=== PATIENT | female | born 1955 | race Caucasian/White ===

== ENCOUNTER → 2020-08-30 | Outpatient (CLI) | payer BC ==
[2020-08-30 14:19] LABS: HCT 40.1 % (34.0-46.0); HGB 13.1 gm/dL (11.4-16.0); MCH 29.6 pg (25.0-35.0); MCHC 32.8 g/dL (31.0-37.0); MCV 90.1 fL (80.0-100.0); Mean Platelet Volume 6.5; Platelet Count 336 k/uL (150-450); RBC 4.45 m/uL (3.80-5.40); RDW 12.4 % (11.5-15.5); WBC 5.5 k/uL (3.8-10.6)
[2020-08-30 14:22] LABS: Appearance,Urine Clear (Clear); Bilirubin,Urine Negative (Negative); Blood,Urine Small (Negative); Color,Urine Light Yellow; Glucose,Urine (UA) Negative (Negative); Ketones,Urine Negative (Negative); Leukocyte Esterase,Urine Trace (Negative); Nitrite,Urine Negative (Negative); Protein,Urine Negative (Negative); RBC,Urine 2 /hpf (0-5); Specific Gravity,Urine 1.009 (1.001-1.035); Urobilinogen,Urine <2.0 mg/dL (<2.0); WBC,Urine 1 /hpf (0-5)
[2020-08-30 14:29] LABS: ALT 14 U/L (4-34); AST 23 U/L (14-36); African American GFR (CKD) >90 (>60 ml/min/1.73 sqM); Albumin 4.9 g/dL (3.5-5.0); Alkaline Phosphatase 58 U/L (38-126); Anion Gap 8 mmol/L; Blood Urea Nitrogen 14 mg/dL (7-17); Calcium 10.3 mg/dL (8.4-10.2); Carbon Dioxide 28 mmol/L (22-30); Chloride 105 mmol/L (98-107); Glucose 103 mg/dL (74-99); Non-African American GFR(CKD) >90 (>60 ml/min/1.73 sqM); Sodium 141 mmol/L (137-145); Total Bilirubin 0.6 mg/dL (0.2-1.3); Total Protein 7.5 g/dL (6.3-8.2)
[2020-08-30 14:34] LABS: Prothrombin Time 10.6 sec (9.0-12.0)
[2020-08-30 14:40] LABS: Partial Thromboplastin Time 21.1 sec (22.0-30.0)
== END | disposition home or self-care (01) ==
LOC: LABPAT 13:22
PROVIDERS: ATTEND Orthopaedic Surgery
DX: Z01.812 Encounter for preprocedural laboratory examination (principal)
CPT/HCPCS: 36415; 80053; 81001; 85027; 85610; 85730; 87070

== ENCOUNTER 2020-09-10 12:51 | Day surgery (SDC) | payer BC, MEDICARE ==
[2020-08-27 15:11] VITALS: BMI 19.9
[~2020-09-10 12:51] MED LIST: ACETAMINOPHEN TAB 500 MG TAB PO PRN; DEXAMETHASONE SOD PHOSPHATE 4 MG/ML 1 ML VIAL IV ONE; GABAPENTIN 300 MG CAP PO PRN; MELOXICAM 7.5 MG TAB PO PRN; ONDANSETRON 4 MG/2 ML VIAL IVP ONE; TRANEXAMIC ACID 1,000 MG in SODIUM CHLORIDE 0.9% 100 ML IVPB PRN
[2020-09-10] MEDS ORDERED: ONDANSETRON 4 MG/2 ML VIAL ONE ×2 (13:13→13:54)
[2020-09-10] MEDS ORDERED: MAGNESIUM HYDROXIDE 2,400 MG/10 ML CUP PO PRN (13:21)
[2020-09-10] MEDS ORDERED: hydrOXYzine pamoate 25 MG CAP PO PRN (13:21)
[2020-09-10] MEDS ORDERED: HYDROmorphone 1 MG/ML 1 ML SYRINGE IVP PRN (13:21)
[2020-09-10] MEDS ORDERED: NALOXONE 0.4 MG/ML 1 ML VIAL IV PRN (13:21)
[2020-09-10] MEDS ORDERED: HYDROmorphone 0.2 MG/1 ML SYRINGE IVP PRN (13:21)
[2020-09-10] MEDS ORDERED: HYDROmorphone 0.5 MG/0.5 ML SYRINGE IVP PRN (13:21)
[2020-09-10] MEDS ORDERED: HYDROcodone/APAP 7.5-325MG 1 EACH TAB PO PRN (13:23)
[2020-09-10] MEDS: LACTATED RINGERS 1,000 ML IV SCH ×3 (13:46→18:10)
[2020-09-10] MEDS ORDERED: HYDROmorphone (PF) 1 MG/ML ONE (13:54)
[2020-09-10] MEDS ORDERED: ROCURONIUM 10 MG/ML (5 ML VIAL) IV ONE (13:54)
[2020-09-10] MEDS ORDERED: SODIUM CHLORIDE 0.9% 100 ML BAG ONE (13:54)
[2020-09-10] MEDS ORDERED: TRANEXAMIC ACID 1,000 MG/10 ML VIAL ONE (13:54)
[2020-09-10] MEDS ORDERED: MIDAZOLAM 2 MG/2 ML VIAL ONE (13:54)
[2020-09-10] MEDS ORDERED: SODIUM CHLORIDE 0.9% IRRIG 1,000 ML BTL IRRIGATION ONE (13:54)
[2020-09-10] MEDS ORDERED: HEPARIN SODIUM,PORCINE 10,000 UNIT/ML 1 ML VIAL ONE (13:54)
[2020-09-10] MEDS ORDERED: fentaNYL (PF) 50 MCG/ML 2 ML AMP ONE (13:54)
[2020-09-10] MEDS ORDERED: DEXAMETHASONE SOD PHOSPHATE 10 MG/ML 1 ML VIAL ONE (13:54)
[2020-09-10] MEDS ORDERED: GLYCOPYRROLATE 0.2 MG/ML 2 ML VIAL ONE (13:54)
[2020-09-10] MEDS ORDERED: PROPOFOL 10 MG/ML 20 ML VIAL IV ONE (13:54)
[2020-09-10] MEDS ORDERED: LIDOCAINE 1% INJ 10MG/ML (20 ML MDV) ONE (13:54)
[2020-09-10] MEDS ORDERED: NEOSTIGMINE 1 MG/ML 10 ML VIAL ONE (13:54)
[2020-09-10] MEDS ORDERED: ceFAZolin 1,000 MG in SODIUM CHLORIDE 0.9% 1,000 ML IRRIGATION ONE (14:23)
[2020-09-10] MEDS: ROPIVACAINE/EPI/CLONIDINE/KET 50 ML SYRINGE MISCELLANE PRN ×2 (14:23→14:58)
--- NOTE | 2020-09-10 15:07 | P.OP ---
Date of Procedure: 09/10/20 Preoperative Diagnosis: Severe osteoarthritis right hip Postoperative Diagnosis: Severe osteoarthritis right hip Procedure(s) Performed: Right total hip arthroplasty with a direct anterior approach Implants: [employer]hew Polarstem standard size 6 [employer]hew R3, 3 hole hemispherical acetabular shell, 48 mm [employer]hew Reflection 6.5 mm cancellus screw, 20 mm 2 [employer] R3, XLPE 20 acetabular liner [employer] Nephew Oxinium femoral head 32 m, +0 All components were press-fit. The articulation is Oxinium on polyethylene. Anesthesia: spinal Surgeon: Quincy Tracy Rotary Cutter Operator #1: Caroline Chase Estimated Blood Loss (ml): 200 (63 mL returned with Cell Saver) Pathology: other (Femoral head) Condition: stable Disposition: PACU Indications for Procedure: After failure of conservative treatment we discussed the surgical and nonsurgical treatment options at length. Patient wishes to proceed with a total hip arthroplasty with a direct anterior approach. Complications specific to this procedure were discussed at length, including but not limited to infection, leg length discrepancy, dislocation, nerve injury, and fracture. Covid-19 was also discussed at length with the patient, and they are aware of the current policies and procedures. The patient was given the option of delaying surgery, but they elect to proceed knowing these risks. Patient is aware of all these complications and informed consent was obtained Operative Findings: The operative findings are consistent with severe osteoarthritis of the right hip Description of Procedure: Patient was seen and evaluated in the preoperative area and the consent was reviewed. The operative site was marked with a skin marker. The patient was then brought to the operating room and given preoperative antibiotics intravenously. 1 g of Tranexamic acid was also given intravenously. A spinal anesthetic was administered by the anesthesia department. The patient was then placed on the [place] table with the bony prominences well-padded. The hip area was then prepped with a ChloraPrep solution and draped in the usual sterile fashion. A universal timeout was then performed, which confirmed the patient's name, surgical site, ALLERGIES, and procedure being performed on the consent. Next the incision site was located at 1 cm distal to the anterior superior iliac spine along the flexion crease of the hip. The skin and subcutaneous tissues were sharply incised. Incision was carefully dissected down to the fascia overlying the tensor fascia abiodun muscle. This fascia was then incised in line with the incision. Care was taken to stay laterally in order to avoid injuring the lateral femoral cutaneous nerve. Next, using blunt finger dissection, the tensor fascia abiodun muscle was dissected off its investing fascia. The muscle was then carefully retracted laterally with a cobra retractor over the lateral neck of the femur. Next, the circumflex vessels were identified and cauterized using the AquaMantis device. The anterior hip capsule was then exposed. The capsule was then opened and an inverted T fashion. Cobra retractors were then placed intracapsularly. The retractors were maintained intracapsular throughout the procedure. The proximal femur was then visualized. A small amount of traction was placed on the leg. The femoral neck was then osteotomized appropriate level above the lesser trochanter. A small wedge of bone was then removed from the remaining femoral head. Next, using a corkscrew the femoral head was removed from the acetabulum. On gross visual inspection, the femoral head had complete loss of articular cartilage and multiple periarticular osteophytes. The femoral head was then measured. Attention was then turned to the acetabulum. The acetabulum was exposed and any remaining labrum was excised. Sequential reaming of the acetabulum was performed using fluoroscopic guidance until there was a good bed of bleeding cancellus bone. When the appropriate size was reached, a trial was then placed. The position and fit of the trial was checked with fluoroscopy. The trial was then removed. Then, using fluoroscopic guidanc e, the final implant was impacted at 20 of anteversion and 40 of abduction, and fully seated in the acetabulum. 2 screws were then placed in the acetabulum. Again fluoroscopy was used to check position of the screws. Next, the liner was then impacted, with a 20 elevated liner located in the anterior superior quadrant. Component locking was confirmed. Attention was then directed to the femur. With the aid of the [place] table, the femur was externally rotated to approximately 130, extended, and adducted under the opposite leg. A side hook was then placed under the proximal femur, and the side hook elevator was used to elevate the proximal femur while releasing the capsule. Retractors were then placed. A capsular release was performed, as well as a release of the conjoined tendon, which afforded excellent visualization of the proximal femur. Next, a box osteotome was used to lateralize the proximal femur. A hand inserter operator was then used to locate the femoral canal. Sequential broaching was then performed with appropriate size which afforded excellent fixation in the proximal femur. A trial was then placed with appropriate head and neck, and the hip was gently reduced with the aid of the [place] table. Fluoroscopy was then used to check position of the components, as well as to ensure equal leg lengths. The hip was then gently dislocated and the trials were then removed. Final implants were then impacted and the hip was again reduced. Final fluoroscopic x-rays confirmed that the components were in anatomic position, as well as equal leg lengths. The hip was also taken through range of motion, and found to be stable. The hip was then copiously irrigated with antibiotic solution with pulsatile lavage. The hip was then irrigated with Irrisept solution. The soft tissues were then injected with a ropivacaine solution, which consisted of 246.25 mg of ropivacaine, 0.5 mg of epinephrine, 30 mg of Toradol, 80 g of clonidine, and 48.45 mL of sterile water, for a total of 100 mL of fluid injected. A second dose of 1 g of Tranexamic acid was also given intravenously. Any blood collected by Cell Saver was then returned to the patient at this time. The fascia was then closed with 2-0 strata fix suture. The subcutaneous tissue was closed with 3-0 Vicryl. The subcuticular tissue was closed with 3-0 strata fix suture. The skin was then closed with Exofin skin glue. After the glue and dried, and Optifoam silver impregnated dressing was applied. The patient was then transferred to the recovery room in stable condition. The dental front office assistant RAVIN Steve was required due to the complexity of surgery, and the need for skilled neurosurgical physician assistant for positioning, draping, exposure, retraction, and closure of the wound.
[2020-09-10] MEDS ORDERED: LACTATED RINGERS 1,000 ML IV ONE (15:12)
[2020-09-10] MEDS: HYDROmorphone 0.5 MG/0.5 ML SYRINGE IVP PRN ×2 (15:41→16:07)
--- NOTE | 2020-09-10 15:55 | FL ---
Fluoroscopy History: R hip replacement R hip replacement. [address] Lovell.
[2020-09-10] MEDS ORDERED: diphenhydrAMINE 50 MG/ML 1 ML VIAL ONE (16:08)
--- NOTE | 2020-09-10 16:08 | XR ---
EXAMINATION TYPE: XR Hip Limited RT DATE OF EXAM: 09/10/2020 COMPARISON: None HISTORY: Hip replacement TECHNIQUE: AP FINDINGS: Femoral prosthesis has been placed. Acetabular component is in place. No acute fractures ar e evident. Catheter may overlie the pelvis. IMPRESSION: 1. No acute fractures post right hip replacement.
[2020-09-10] MEDS ORDERED: diphenhydrAMINE 50 MG/ML 1 ML VIAL IVP ONE (16:11)
[2020-09-10] MEDS: SODIUM CHLORIDE 0.9% 1,000 ML IV SCH (18:09)
[2020-09-10] MEDS: ASPIRIN 325 MG TAB PO SCH (20:04)
[2020-09-10] MEDS ORDERED: SENNOSIDES-DOCUSATE SODIUM 1 EACH TAB PO SCH (21:00)
[2020-09-10] MEDS: HYDROcodone/APAP 7.5-325MG 1 EACH TAB PO PRN (22:29)
[2020-09-11] MEDS: SODIUM CHLORIDE 0.9% 1,000 ML IV SCH (06:51)
[2020-09-11] MEDS: ASPIRIN 325 MG TAB PO SCH (07:14)
--- NOTE | 2020-09-11 07:35 | P.DS ---
Providers Expected date of discharge: 09/11/20 Attending physician: Quincy Tracy Consults: 09/10/20 13:21 Consult Physician Routine Consulting Provider: Yany Burgos Consult Reason/Comments: medical management if pt does not dc home same day Do you want consulting provider notified?: Yes Primary care physician: Quincy Hicks - Discharge Diagnosis(es) (1) Primary localized osteoarthritis of right hip Current Visit: Yes Status: Acute (2) Status post total hip replacement, right Current Visit: Yes Status: Acute Hospital Course: This is a 65-year-old female with known history of degenerative arthritis of the right hip. The patient presents for evaluation. After discussion and consideration patient elects to proceed with total hip arthroplasty with direct anterior approach. The patient is seen preoperatively by her primary care physician and cleared for surgery. Patient is admitted to [facility] on 09/10/2020 for total hip arthroplasty with direct anterior approach. The procedures performed without complication or sequelae. The patient is doing well postoperatively. Labs and vital signs are stable on day of discharge. On day of discharge patient's hip incision is healing well. There is minimal erythema. There is no drainage noted at this time. There is minimal soft tissue swelling to the hip and thigh. Patient has full foot and ankle motion without difficulty or pain. Neurovascular status to the right lower extremity is intact. Patient is discharged to home in good condition. Please see med rec for accurate list of home medications. Patient Condition at Discharge: Good Plan - Discharge Summary Discharge Rx Participant: Yes New Discharge Prescriptions: New HYDROcodone/APAP 7.5-325MG [[place] 7.5-325] 1 - 2 tab PO Q6H PRN #32 tab PRN Reason: Pain Aspirin 325 mg PO BID #60 tab Sennosides [Senokot] 2 tab PO DAILY PRN #60 tablet PRN Reason: Constipation Ondansetron Odt [Zofran Odt] 1 tab PO Q8HR PRN #10 tab PRN Reason: Nausea No Action Loratadine [Claritin] 10 mg PO DAILY Acetaminophen/Diphenhydramine [Tylenol PM 500-25mg] 1 tab PO HS Rosuvastatin Calcium [Crestor] 5 mg PO DAILY traZODone HCL [Desyrel] 100 mg PO HS Relief Factor 1 dose PO TID Menthol [Biofreeze] 1 applic TOPICAL DAILY Emal Cream 1 applic TOPICAL DAILY Diclofenac Sodium [Voltaren Gel] 2 gram TOPICAL DAILY Acetaminophen-Codeine 300-30mg [Tylenol w/codeine #3] 1 - 2 tab PO Q4-6H PRN PRN Reason: Pain Naproxen Sod/Diphenhydramine [Aleve Pm Caplet] 1 each PO HS Celecoxib [CeleBREX] 200 mg PO BID Cbd W/Melatonin 1 tab PO DAILY Discharge Medication List Acetaminophen-Codeine 300-30mg [Tylenol w/codeine #3] 1 - 2 tab PO Q4-6H PRN 08/27/20 [History] Acetaminophen/Diphenhydramine [Tylenol PM 500-25mg] 1 tab PO HS 08/27/20 [History] Cbd W/Melatonin 1 tab PO DAILY 08/27/20 [History] Celecoxib [CeleBREX] 200 mg PO BID 08/27/20 [History] Diclofenac Sodium [Voltaren Gel] 2 gram TOPICAL DAILY 08/27/20 [History] Emal Cream 1 applic TOPICAL DAILY 08/27/20 [History] Loratadine [Claritin] 10 mg PO DAILY 08/27/20 [History] Menthol [Biofreeze] 1 applic TOPICAL DAILY 08/27/20 [History] Naproxen Sod/Diphenhydramine [Aleve Pm Caplet] 1 each PO HS 08/27/20 [History] Relief Factor 1 dose PO TID 08/27/20 [History] Rosuvastatin Calcium [Crestor] 5 mg PO DAILY 08/27/20 [History] traZODone HCL [Desyrel] 100 mg PO HS 08/27/20 [History] Aspirin 325 mg PO BID #60 tab 09/10/20 [Rx] HYDROcodone/APAP 7.5-325MG [[place] 7.5-325] 1 - 2 tab PO Q6H PRN #32 tab 09/10/20 [Rx] Ondansetron Odt [Zofran Odt] 1 tab PO Q8HR PRN #10 tab 09/10/20 [Rx] Sennosides [Senokot] 2 tab PO DAILY PRN #60 tablet 09/10/20 [Rx] Follow up Appointment(s)/Referral(s): Quincy Tracy DO [Doctor of Osteopathic Medicine] - 2 Weeks Activity/Diet/Wound Care/Special Instructions: Weightbearing as tolerated with walker. Leave dressing intact. Dressing may be removed by home care nurse or by patient in 7 days. Then change dressing twice daily until follow up. May shower with initial dressing intact and after removal. If dressing become saturated, please remove. Please take aspirin 325mg twice daily for 30 days to prevent blood clots. Recommend use of compression stockings daily until follow up to help prevent swelling and blood clots. May remove at night before sleeping. Please follow-up with [facility] in 2 weeks and call with any questions or concerns, . Discharge Disposition: HOME WITH HOME HEALTH SERVICES
[2020-09-11 08:03] VITALS: BP 99/52; PULSE 57; RESP 16; TEMP 98.1
[2020-09-11 10:40] LABS: Basophils # (A) 0.02 X 10*3/uL (0.00-0.10); Basophils % (A) 0.1 %; Eosinophils # (A) 0.01 X 10*3/uL (0.04-0.35); Eosinophils % (A) 0.1 %; HCT 29.3 % (37.2-46.3); HGB 9.5 g/dL (12.0-15.0); Lymphocytes # (A) 1.43 X 10*3/uL (0.90-5.00); Lymphocytes % (A) 10.7 %; MCH 29.9 pg (27.0-32.0); MCHC 32.4 g/dL (32.0-37.0); MCV 92.1 fL (80.0-97.0); Mean Platelet Volume 9.6 fL (9.5-12.2); Monocytes # (A) 1.22 X 10*3/uL (0.20-1.00); Monocytes % (A) 9.1 %; Neutrophils # (A) 10.67 X 10*3/uL (1.80-7.70); Neutrophils % (A) 79.6 %; Platelet Count 220 X 10*3/uL (140-440); RBC 3.18 X 10*6/uL (4.10-5.20); RDW 12.4 % (11.5-14.5)
[2020-09-11] MEDS: HYDROcodone/APAP 7.5-325MG 1 EACH TAB PO PRN (11:52)
--- NOTE | 2020-09-11 17:27 | P.CONS ---
History of Present Illness - History of Present Illness This is a pleasant 65 years old female with past medical history of hyperlipi demia, DVT or thromboses and pulmonary embolism and degenerative disc disease. History of brain meningioma status post surgical resection at [facility] with Dr. Arian Napier. Presents electively under service of orthopedic team for severe right hip osteoarthritis, she underwent right total hip arthroplasty. Today is postop day #1. Patient was sitting in chair comfortable not in distress. Fully awake and oriented, she denies any other symptoms like no chest pain or dyspnea. No headache or weakness. Abdominal pain. No diarrhea or urinary complaints. No fever Patient is asymptomatic, she was dressed in sports suits and states that she practice pork every day almost Her vitals showing borderline blood pressure of 99/52 bradycardia with heart rate of 52. Labs showing mild leukocytosis of 13.4 K. Similarly 9.5 and platelet count is 220 Review of Systems CONSTITUTIONAL: No fever, no malaise, no fatigue. HEENT: No recent visual problems or hearing problems. Denied any sore throat. CARDIOVASCULAR: No orthopnea, PND, no palpitations, no syncope. PULMONARY: No shortness of breath, no cough, no hemoptysis. GASTROINTESTINAL: No diarrhea, no nausea, no vomiting, no abdominal pain. Normoactive bowel sounds. NEUROLOGICAL: No headaches, no weakness, no numbness. HEMATOLOGICAL: Denies any bleeding or petechiae. GENITOURINARY: Denies any burning micturition, frequency, or urgency. -MUSCULOSKELETAL/RHEUMATOLOGICAL: As above ENDOCRINE: Denies any polyuria or polydipsia. Past Medical History Past Medical History: Deep Vein Thrombosis (DVT), Hyperlipidemia, Osteoarthritis (OA), Pulmonary Embolus (PE) Additional Past Medical History / Comment(s): AVASCULAR NECROSIS RT HIP. LT MENINGIOMA-HAD RADIATION LAST ROUND 05/08/20 History of Any Multi-Drug Resistant Organisms: None Reported Additional Past Surgical History / Comment(s): LT MENINGIOMA SX X 2. COLONOSCOPY Past Anesthesia/Blood Transfusion Reactions: Motion Sickness Past Psychological History: Anxiety Additional Psychological History / Comment(s): VERY ANXIOUS REGARDING UPCOMING SURGERY Smoking Status: Never smoker Past Alcohol Use History: None Reported Additional Past Alcohol Use History / Comment(s): QUIT SMOKING AGE 23. 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 INSTRUCTED TO REFRAIN FROM USE FOR AT LEAST 24 HOURS PRIOR TO PROCEDURE - Past Family History Sister(s) Family Medical History: Cancer Medications and Allergies Home Medications Medication Instructions Recorded Confirmed Type Acetaminophen-Codeine 300-30mg 1 - 2 tab PO Q4-6H PRN 08/27/20 09/10/20 History [Tylenol w/codeine #3] Acetaminophen/Diphenhydramine 1 tab PO HS 08/27/20 09/10/20 History [Tylenol PM 500-25mg] Cbd W/Melatonin 1 tab PO DAILY 08/27/20 09/10/20 History Emal Cream 1 applic TOPICAL DAILY 08/27/20 09/10/20 History Loratadine [Claritin] 10 mg PO DAILY 08/27/20 09/10/20 History Menthol [Biofreeze] 1 applic TOPICAL DAILY 08/27/20 09/10/20 History Relief Factor 1 dose PO TID 08/27/20 09/10/20 History Rosuvastatin Calcium [Crestor] 5 mg PO DAILY 08/27/20 09/10/20 History traZODone HCL [Desyrel] 100 mg PO HS 08/27/20 08/27/20 History Aspirin 325 mg PO BID #60 tab 09/10/20 Rx HYDROcodone/APAP 7.5-325MG [[place] 1 - 2 tab PO Q6H PRN #32 tab 09/10/20 Rx 7.5-325] Ondansetron Odt [Zofran Odt] 1 tab PO Q8HR PRN #10 tab 09/10/20 Rx Sennosides [Senokot] 2 tab PO DAILY PRN #60 tablet 09/10/20 Rx Allergies Allergy/AdvReac Type Severity Reaction Status Date / Time No Known Allergies Allergy Verified 09/10/20 13:21 Physical Exam Vitals: Vital Signs Temp Pulse Pulse Resp BP Pulse Ox 09/11/20 08:00 98.1 F 57 L 16 99/52 100 09/11/20 02:08 98.4 F 64 18 93/54 96 09/10/20 20:29 59 L 18 112/68 97 09/10/20 20:28 67 18 111/73 97 09/10/20 19:51 61 18 111/73 95 09/10/20 19:01 67 18 100/65 94 L 09/10/20 18:31 67 18 111/69 94 L 09/10/20 18:16 61 18 104/68 94 L 09/10/20 18:01 60 18 124/79 97 09/10/20 17:46 64 18 124/79 93 L 09/10/20 17:31 67 18 138/81 92 L 09/10/20 16:47 53 L 18 117/62 93 L 09/10/20 16:33 56 L 16 133/64 92 L 09/10/20 16:17 61 18 156/62 92 L 09/10/20 16:02 58 L 18 142/92 95 09/10/20 15:47 49 L 18 147/73 100 09/10/20 15:32 80 18 148/72 96 09/10/20 15:22 97.4 F L 82 14 147/65 96 09/10/20 13:30 97.4 F L 61 18 135/70 100 Intake and Output 09/10/20 09/11/20 09/11/20 22:59 06:59 14:59 Intake Total 800 Balance 800 Intake: IV 800 Other: # Voids 0 3 # Bowel Movements 0 Weight 53.2 kg GENERAL: The patient is alert and oriented x3, not in any acute distress. Well developed, well nourished. HEENT: Pupils are round and equally reacting to light. EOMI. No scleral icterus. No conjunctival pallor. Normocephalic, atraumatic. No pharyngeal erythema. No thyromegaly. CARDIOVASCULAR: S1 and S2 present. No murmurs, rubs, or gallops. PULMONARY: Chest is clear to auscultation, no wheezing or crackles. ABDOMEN: Soft, nontender, nondistended, normoactive bowel sounds. No palpable organomegaly. MUSCULOSKELETAL: No joint swelling or deformity. -EXTREMITIES: No cyanosis, clubbing, or pedal edema. Right hip surgical wound is healing with dressing is in place, rest of exam is deferred to surgery team NEUROLOGICAL: Gross neurological examination did not reveal any focal deficits. SKIN: No rashes. no petechiae. Results CBC & Chem 7: 09/11/20 05:07 Labs: Abnormal Lab Results - Last 24 Hours (Table) 09/11/20 Range/Units 05:07 WBC 13.40 H (4.50-10.00) X 10*3/uL RBC 3.18 L (4.10-5.20) X 10*6/uL Hgb 9.5 L (12.0-15.0) g/dL Hct 29.3 L (37.2-46.3) % Immature Gran # 0.05 H (0.00-0.04) X 10*3/uL Neutrophils # 10.67 H (1.80-7.70) X 10*3/uL Monocytes # 1.22 H (0.20-1.00) X 10*3/uL Eosinophils # 0.01 L (0.04-0.35) X 10*3/uL Assessment and Plan Assessment: Severe right hip osteoarthritis status post right hip replacement Bilateral shoulder osteoarthritis, she will needs follow-up as an outpatient Mild leukocytosis, most likely reactive, no signs of infection, no need for antibiotics. Monitor WBC Mild normochromic and normocytic anemia, most likely secondary to surgery, follow-up hemoglobin History of hyperlipidemia History of brain meningioma status post surgical resection History of DVT/PE Plan: This is a pleasant 65 years old female who is status post right hip a rthroplasty. Pain management and DVT prophylaxis with management of anticoagulation as per surgery primary team Monitor WBC and hemoglobin Labs and medication were reviewed.. Continue same treatment. Continue with symptomatic treatment. Resume home medication. Monitor lytes and vitals. DVT and GI prophylaxis. Further recommendationsas per clinical course of the patient We recommend patient to follow-up with PCP Dr. Hicks in one week after discharge, and she was instructed with the same Thank you for consulting us, we will follow up with you
== END 2020-09-11 12:11 | disposition home health service (06) ==
LOC: OR 12:51 → 4SSUR 16:20 → OR 09-11 12:11
PROVIDERS: ATTEND Orthopaedic Surgery
DX: M16.11 Unilateral primary osteoarthritis, right hip (principal); E78.5 Hyperlipidemia, unspecified; Z87.891 Personal history of nicotine dependence; Z79.899 Other long term (current) drug therapy; Z86.711 Personal history of pulmonary embolism; Z86.718 Personal history of other venous thrombosis and embolism; Z86.73 Personal history of transient ischemic attack (TIA), and cerebral infarction without residual deficits
CPT/HCPCS: 97116; 97162; 97535; 97165; 86891; 86900; 86901; 85025; 86850; 73501; 27130; C1776; J2250; J1200; J1644; J1100; J2710; J0690 ×3; J2405; J2001; J3010; J1170 ×2; J2704; 88305; 88311

== ENCOUNTER → 2020-12-31 | Outpatient (CLI) | payer BC ==
--- NOTE | 2021-01-02 13:50 | MM ---
Reason for exam: screening (asymptomatic). Last mammogram was performed 3 years and 1 month ago. History: Patient is postmenopausal. Physical Findings: A clinical breast exam by your physician is recommended on an annual basis and results should be correlated with mammographic findings. MG Screening Mammo w CAD Bilateral CC and MLO view(s) were taken. Prior study comparison: December 11, 2017, mammogram, performed at [place]. November 25, 2015, mammogram, performed at [place]. The breast tissue is heterogeneously dense. This may lower the sensitivity of mammography. Unchanged central right CC asymmetric density. No significant changes when compared with prior studies. ASSESSMENT: Benign, BI-RAD 2 RECOMMENDATION: Routine screening mammogram of both breasts in 1 year.
== END | disposition home or self-care (01) ==
LOC: RADMAMWWP 13:57
PROVIDERS: ATTEND Family Medicine
DX: Z12.31 Encounter for screening mammogram for malignant neoplasm of breast (principal); Z78.0 Asymptomatic menopausal state
CPT/HCPCS: 77067

== ENCOUNTER → 2023-07-14 | Outpatient (CLI) | payer MEDICARE, OTHER ==
[2023-07-14 12:47] LABS: Prothrombin Time 10.6 sec (10.0-12.5)
[2023-07-14 14:39] LABS: HCT 40.6 % (37.2-46.3); HGB 13.2 g/dL (12.0-15.0); MCH 29.1 pg (27.0-32.0); MCHC 32.5 g/dL (32.0-37.0); MCV 89.4 FL (80.0-97.0); Mean Platelet Volume 8.9 FL (9.5-12.2); NRBC Per 100 WBC 0 X 10*3/uL (0.00-0.01); Platelet Count 363 X 10*3/uL (140-440); RBC 4.54 X 10*6/uL (4.10-5.20); RDW 12.2 % (11.5-14.5); WBC 6.34 X 10*3/uL (4.50-10.00)
[2023-07-14 15:08] LABS: ALT 20 U/L (8-44); AST 22 U/L (13-35); Albumin 4.9 g/dL (3.8-4.9); Albumin/Globulin Ratio 2.04 Ratio (1.60-3.17); Alkaline Phosphatase 66 U/L (41-126); BUN/Creat Ratio 12.29 Ratio (12.00-20.00); Blood Urea Nitrogen 8.6 mg/dL (9.0-27.0); Calcium 9.9 mg/dL (8.7-10.3); Carbon Dioxide 24.9 mmol/L (21.6-31.8); Chloride 103 mmol/L (96-109); Globulin 2.4 g/dL (1.6-3.3); Glucose 92 mg/dL (70-110); Potassium 4.3 mmol/L (3.5-5.5); Sodium 139 mmol/L (135-145); Total Bilirubin 0.4 mg/dL (0.3-1.2); Total Protein 7.3 g/dL (6.2-8.2)
== END | disposition home or self-care (01) ==
LOC: LABPAT 10:59
PROVIDERS: ATTEND Orthopaedic Surgery
DX: Z01.812 Encounter for preprocedural laboratory examination (principal); Z22.322 Carrier or suspected carrier of Methicillin resistant Staphylococcus aureus
CPT/HCPCS: 36415; 80053; 85027; 85610; 85730; 86850; 86900; 86901; 87070

== ENCOUNTER 2023-07-20 07:08 | Day surgery (SDC) | payer MEDICARE, OTHER ==
[2023-07-15 11:26] VITALS: BMI 22.1
[~2023-07-20 07:08] MED LIST changes: -ACETAMINOPHEN TAB 500 MG TAB PO PRN; -DEXAMETHASONE SOD PHOSPHATE 4 MG/ML 1 ML VIAL IV ONE; -GABAPENTIN 300 MG CAP PO PRN; +HYDROmorphone 0.5 MG/0.5 ML SYRINGE IVP PRN; +LIDOCAINE 1% (10MG/ML) FOR IV START INTRADERMA PRN; -MELOXICAM 7.5 MG TAB PO PRN; -ONDANSETRON 4 MG/2 ML VIAL IVP ONE; +TRANEXAMIC 1,000 MG/100ML-NACL 1,000 MG in SALINE 1 100ML.BAG IVPB PRN; -TRANEXAMIC ACID 1,000 MG in SODIUM CHLORIDE 0.9% 100 ML IVPB PRN
[2023-07-20] MEDS: IV FLUID CONTINUATION 1,000 ML IV ONE ×2 (07:39→13:05)
[2023-07-20] MEDS: GABAPENTIN 300 MG CAP PO PRN (08:05)
[2023-07-20] MEDS: MELOXICAM 7.5 MG TAB PO PRN (08:05)
[2023-07-20] MEDS: ONDANSETRON 4 MG/2 ML VIAL IVP ONE (08:07)
[2023-07-20] MEDS: DEXAMETHASONE SOD PHOSPHATE 4 MG/ML 1 ML VIAL IV ONE (08:08)
[2023-07-20] MEDS: LACTATED RINGERS 1,000 ML IV SCH (08:08)
[2023-07-20] MEDS: MIDAZOLAM 2 MG/2 ML VIAL IVP ONE (08:15)
--- NOTE | 2023-07-20 08:22 | P.ANPRN ---
Procedure Note - Anesthesia - Nerve Block Performed Left Justyn Single Time Out Performed: Yes ([id number]) Date of Procedure: 07/20/23 Procedure Start Time: : Procedure Stop Time: : Location of Patient: PreOp Indication: Acute Post-Operative Pain, Requested by Surgeon Sedation Type: Sedate with meaningful contact maintained Preparation: Sterile Prep, Sterile Dressing Position: Supine Catheter: None Needle Types: Pajunk Needle Gauge: 21 Ultrasound used to visualize needle placement: Yes Ultrasound used to observe medication spread: Yes Injectate: 0.5% Ropivacaine (see comment for volume) (20 ml mixed with 4 mg of dexamethasone) Blood Aspirated: No Pain Paresthesia on Injection Noted: No Image Stored and Saved: Yes Events: Uneventful and Well Tolerated
[2023-07-20] MEDS ORDERED: NALOXONE 0.4 MG/ML 1 ML VIAL IV PRN (08:53)
[2023-07-20] MEDS ORDERED: ONDANSETRON 4 MG/2 ML VIAL IVP PRN (08:53)
[2023-07-20] MEDS ORDERED: MAGNESIUM HYDROXIDE 2,400 MG/30 ML CUP PO PRN (08:53)
[2023-07-20] MEDS ORDERED: HYDROmorphone 0.5 MG/0.5 ML SYRINGE IVP PRN ×3 (08:53)
[2023-07-20] MEDS ORDERED: HYDROcodone/APAP 7.5-325MG 1 EACH TAB PO PRN (08:55)
[2023-07-20] MEDS ORDERED: HYDROmorphone (PF) 1 MG/ML ONE (09:10)
[2023-07-20] MEDS ORDERED: TRANEXAMIC 1,000 MG/100ML-NACL PREMIX BAG ONE (09:10)
[2023-07-20] MEDS ORDERED: MIDAZOLAM 2 MG/2 ML VIAL ONE (09:10)
[2023-07-20] MEDS ORDERED: fentaNYL (PF) 50 MCG/ML 2 ML AMP ONE (09:10)
[2023-07-20] MEDS ORDERED: ROPIVACAINE 5 MG/ML 30 ML VIAL ONE (09:10)
[2023-07-20] MEDS ORDERED: PROPOFOL 10 MG/ML 20 ML VIAL IV ONE (09:10)
[2023-07-20] MEDS ORDERED: SUCCINYLCHOLINE CHLORIDE 200 MG/10 ML VIAL IV ONE (09:10)
[2023-07-20] MEDS ORDERED: NEOSTIGMINE 1 MG/ML 10 ML VIAL ONE (09:10)
[2023-07-20] MEDS ORDERED: LIDOCAINE 1% INJ 10MG/ML (20 ML MDV) ONE (09:10)
[2023-07-20] MEDS ORDERED: DEXAMETHASONE SOD PHOSPHATE 4 MG/ML 1 ML VIAL ONE (09:10)
[2023-07-20] MEDS ORDERED: GLYCOPYRROLATE 0.2 MG/ML 2 ML VIAL ONE (09:10)
[2023-07-20] MEDS: LACTATED RINGERS 1,000 ML IV ONE (09:37)
[2023-07-20] MEDS: ROPIVACAINE 5 MG/ML 30 ML VIAL MISCELLANE ONE ×2 (09:45→10:17)
[2023-07-20] MEDS: ceFAZolin 1,000 MG in SODIUM CHLORIDE 0.9% 1,000 ML IRRIGATION ONE (09:46)
--- NOTE | 2023-07-20 10:26 | P.OP ---
Date of Procedure: 07/20/23 Preoperative Diagnosis: severe osteoarthritis left hip Postoperative Diagnosis: severe osteoarthritis left hip Procedure(s) Performed: left total hip arthroplasty with a direct anterior approach Implants: [employer] Polarstem standard size 7 with a collar [employer] R3, 3 hole hemispherical acetabular shell, 48 mm [employer] Reflection 6.5 mm cancellus screw, 20 mm, 25 mm [employer] R3, XLPE 20 acetabular liner [employer]hew Oxinium femoral head 32 mm, +0 All components were press-fit. The articulation is Oxinium on polyethylene. Anesthesia: GETA Surgeon: Quincy Tracy In Service Coordinator #1: Caroline Chase Estimated Blood Loss (ml): 350 Pathology: none sent Condition: stable Disposition: PACU Indications for Procedure: After failure of conservative treatment we discussed the surgical and nonsu rgical treatment options at length. Patient wishes to proceed with a total hip arthroplasty with a direct anterior approach. Complications specific to this procedure were discussed at length, including but not limited to infection, leg length discrepancy, dislocation, nerve injury, and fracture. Covid-19 was also discussed at length with the patient, and they are aware of the current policies and procedures. The patient was given the option of delaying surgery, but they elect to proceed knowing these risks. Patient is aware of all these complications and informed consent was obtained Operative Findings: the operative findings are consistent with severe osteoarthritis of the left hip Description of Procedure: The patient was seen and evaluated in the preoperative area and the consent was reviewed. The operative site was marked with a skin marker. The patient verified the procedure and operative site. A AL block was placed by anesthesia in the preoperative area. The patient was then brought to the operating room and given preoperative antibiotics intravenously. 1 g of Tranexamic acid was also given intravenously. A general anesthetic was administered by the anesthesia department. The patient was then placed on the [place] table with the bony prominences well-padded. The hip area was then prepped with a ChloraPrep solution and draped in the usual sterile fashion. A universal timeout was then performed, which confirmed the patient's name, surgical site, ALLERGIES, and procedure being performed on the consent. Next the incision site was located at 1 cm distal and 4 cm lateral to the anterior superior iliac spine. The skin and subcutaneous tissues were sharply incised. Incision was carefully dissected down to the fascia overlying the tensor fascia abiodun muscle. This fascia was then incised in line with the muscle fibers. Care was taken to stay laterally in order to avoid injuring the lateral femoral cutaneous nerve. Next, using blunt finger dissection, the tensor fascia abiodun muscle was dissected off its investing fascia. The muscle was then carefully retracted laterally with a cobra retractor over the lateral neck of the femur. Next, the circumflex vessels were identified and cauterized using the Aquamantis device. The anterior hip capsule was then exposed. The capsule was then opened and an inverted T fashion. The retractors were then placed intracapsularly. The retractors were maintained intracapsular throughout the procedure. The proximal femur was then visualized. Fluoroscopic x-rays were then taken in order to evaluate the preoperative leg lengths. A small amount of traction was placed on the leg. The femoral neck was then osteotomized at the appropriate level above the lesser trochanter. A small wedge of bone was then removed from the remaining femoral head. Next, using a corkscrew the femoral head was removed from the acetabulum. On gross visual inspection, the femoral head had complete loss of articular cartilage and multiple periarticular osteophytes. The femoral head was then measured. Attention was then turned to the acetabulum. The acetabulum was exposed and any remaining labrum was excised. Sequential reaming of the acetabulum was performed using fluoroscopic guidance until there was a good bed of bleeding cancellus bone. When the appropriate size was reached, a trial was then placed. The position and fit of the trial was checked with fluoroscopy. The trial was then removed. Then, using fluoroscopic guidance, the final implant was impacted at 20 of anteversion and 40 of abduction, and fully seated in the acetabulum. 2 screws were then placed in the acetabulum. Again fluoroscopy was used to check position of the screws. Next, the liner was then impacted, with a 20 elevated liner located in the anterior superior quadrant. Component locking was confirmed. Attention was then directed to the femur. With the aid of the [place] table, the femur was externally rotated to approximately 130, extended, and adducted under the opposite leg. A side hook was then placed under the proximal femur, and the side hook elevator was used to elevate the proximal femur while releasing the capsule. Retractors were then placed. A capsular release was performed, as well as a release of the conjoined tendon, which afforded excellent v isualization of the proximal femur. Next, a box osteotome was used to lateralize the proximal femur. A kiln hand was then used to locate the femoral canal. Sequential broaching was then performed with appropriate size which afforded excellent fixation in the proximal femur. A trial was then placed with appropriate head and neck, and the hip was gently reduced with the aid of the [place] table. Fluoroscopy was then used to check position of the components, as well as to evaluate the leg lengths and offset. The leg lengths and offset were measured as closely as possible to ensure stability of the hip. The hip was then gently dislocated and the trials were then removed. Final implants were then impacted and the hip was again reduced. Final fluoroscopic x-rays confirmed that the components were in anatomic position. The leg lengths and offset were measured and were found to coincide with the trial measurements. The hip was also taken through range of motion, and found to be stable. The hip was then copiously irrigated with antibiotic solution with pulsatile lavage. The hip was then irrigated with Irrisept solution. The soft tissues were then injected with a ropivacaine solution. A second dose of 1 g of Tranexamic acid was also given intravenously. The fascia was then closed with 2-0 strata fix suture. The subcutaneous tissue was closed with 3-0 Vicryl. The subcuticular tissue was closed with 3-0 strata fix suture. The skin was then closed with Exofin skin glue. After the glue and dried, and Optifoam silver impregnated dressing was applied. The patient was t hen transferred to the recovery room in stable condition. The assistant secretary RAVIN Steve was required due to the complexity of surgery, and the need for skilled surgical manager for positioning, draping, exposure, retraction, and closure of the wound.
--- NOTE | 2023-07-20 11:03 | FL ---
EXAMINATION TYPE: FL guidance operating room, XR Hip Limited LT Intraoperative/procedural fluoroscopi c services were provided. Total fluoroscopy time is 48.5 seconds with a total of 3 submitted images t o PACS. Please see the operative/procedural note for further details. DAP: 2.0508 Gycm2
[2023-07-20] MEDS: MEPERIDINE 50 MG/ML SYRINGE IVP STA ×2 (11:25→12:05)
[2023-07-20 13:54] VITALS: RESP 16
--- NOTE | 2023-07-20 14:05 | XR ---
EXAMINATION TYPE: XR Hip Limited 1 view LT DATE OF EXAM: 07/20/2023 Comparison: None Clinical History: 68-year-old female Status post hip surgery, assess surgical alignment Findings: Image shows placement of left total hip arthroplasty. Acetabular cup and femoral stem components of t he prosthesis are well seated without periprosthetic fracture. Alignment grossly anatomic. Scattered soft tissue air related to recent operation. Impression: Uncomplicated postoperative appearance left total hip arthroplasty.
[2023-07-20] MEDS: ACETAMINOPHEN TAB 500 MG TAB PO PRN (15:09)
--- NOTE | 2023-07-20 15:55 | P.HPIM ---
History of Present Illness H&P Date: 07/20/23 Chief Complaint: Left hip pain This is a 68-year-old white female who reported to the hospital with left hip pain underwent left hip arthroplasty. She is currently postop, no chest pain no abdominal pain no nausea no vomiting no dizziness no shortness of breath. She denies hematuria or dysuria. Family at bedside. Review of Systems 10 systems reviewed, pertinent positive and negative findings as in the HPI. No chest pain no abdominal pain Past Medical History Past Medical History: Deep Vein Thrombosis (DVT), Hyperlipidemia, Osteoarthritis (OA), Pulmonary Embolus (PE) Additional Past Medical History / Comment(s): AVASCULAR NECROSIS LT HIP. LT MENINGIOMA-HAD RADIATION LAST ROUND 05/08/20 History of Any Multi-Drug Resistant Organisms: None Reported Past Surgical History: Joint Replacement Additional Past Surgical History / Comment(s): LT MENINGIOMA SX X 2. COLONOSCOPY. RT KOFFI Past Anesthesia/Blood Transfusion Reactions: Motion Sickness Past Psychological History: Anxiety, Depression Smoking Status: Former smoker Past Alcohol Use History: None Reported Additional Past Alcohol Use History / Comment(s): QUIT SMOKING AGE 23. 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 Pt was INSTRUCTED TO REFRAIN FROM USE FOR AT LEAST 24 HOURS PRIOR TO PROCEDURE - Past Family History Sister(s) Family Medical History: Cancer Medications and Allergies Home Medications Medication Instructions Recorded Confirmed Type Acetaminophen-Codeine 300-30mg 1 - 2 tab PO Q4-6H PRN 08/27/20 07/20/23 History [Tylenol w/codeine #3] Cbd W/Melatonin 1 tab PO DAILY 08/27/20 07/20/23 History Loratadine [Claritin] 10 mg PO DAILY 08/27/20 07/20/23 History Relief Factor 1 dose PO TID 08/27/20 07/20/23 History traZODone HCL [Desyrel] 100 mg PO HS 08/27/20 07/20/23 History Acetaminophen [Tylenol Extra 500 - 1,000 mg PO DAILY PRN 07/15/23 07/20/23 History Strength] Lidocaine HCl/Menthol [Icy Hot Max 1 applic TOPICAL DAILY 07/15/23 07/20/23 History 4%-1% Liq Roll-On] Pravastatin Sodium [Pravachol] 40 mg PO DAILY 07/15/23 07/20/23 History polyethylene glycoL 3350 [Miralax] 17 gm PO DAILY 07/15/23 07/20/23 History Apixaban [Eliquis] 2.5 mg PO BID 30 Days #60 tab 07/20/23 Rx HYDROcodone/APAP 7.5-325MG [[place] 1 - 2 tab PO Q6H PRN #32 tab 07/20/23 Rx 7.5-325] Sennosides [Senokot] 2 tab PO DAILY PRN #60 tablet 07/20/23 Rx Allergies Allergy/AdvReac Type Severity Reaction Status Date / Time No Known Allergies Allergy Verified 07/20/23 07:47 Physical Exam Vitals: Vital Signs Temp Pulse Resp BP Pulse Ox 07/20/23 14:57 98.3 F 88 16 137/80 100 07/20/23 13:45 82 16 139/65 98 07/20/23 13:15 54 L 18 148/71 100 07/20/23 12:45 53 L 20 139/64 100 07/20/23 12:15 57 L 20 156/72 91 L 07/20/23 12:00 84 20 150/85 100 07/20/23 11:30 58 L 16 158/72 94 L 07/20/23 11:13 73 18 155/72 99 07/20/23 11:06 100 07/20/23 10:58 77 16 145/70 100 07/20/23 10:43 97.0 F L 65 16 122/56 99 07/20/23 08:22 65 16 127/74 100 07/20/23 08:00 98.0 F 67 16 147/80 100 Intake and Output 07/20/23 07/20/23 07/20/23 06:59 14:59 22:59 Intake Total 2651 Output Total 350 Balance 2301 Intake: IV 2651 Output: Estimated Blood Loss 350 Other: # Voids 1 Weight 59.2 kg Constitutional: No acute distress, conversant, pleasant Eyes: Anicteric sclerae, moist conjunctiva, no lid-lag, PERRLA ENMT: NC/AT,Oropharynx clear, no erythema, exudates Neck:Supple, FROM, no masses, or JVD, No carotid bruits; No thyromegaly Lungs: Clear to auscultation, Clear to percussion, Normal respiratory effort, no accessory muscle use Cardiovascular: Heart regular in rate and rhythm, No murmurs, gallops, or rubs no peripheral edema Abdominal: Soft Nontender, non distended, no guarding, no rebound or rigidity, Normoactive bowel sounds No hepatomegaly, No splenomegaly, No palpable mass No abdominal wall hernia noted Skin: Normal temperature, tone, texture, turgor, No induration No subcutaneous nodules, No rash, lesions, No ulcers Extremities:No digital cyanosis No clubbing, Pedal pulses intact and symmetrical Radial pulses intact and symmetrical Normal gait and station, No calf tenderness Psychiatric: Alert and oriented to person, place and time, Appropriate affect Intact judgement Neuro: Muscles Strength 5/5 in all 4 extremities, Sensation to light touch grossly present throughout, Cranial nerves II-XII grossly intact. No focal sensory deficits Thrombosis Risk Factor Assmnt - Choose All That Apply Any of the Below Risk Factors Present?: No Each Risk Factor Represents 2 Points: Age 61-74 years, Major surgery Each Risk Factor Represents 3 Points: History of DVT/PE Each Risk Factor Represents 5 Points: Hip, pelvis, or leg fracture (< 1 month) Thrombosis Risk Factor Assessment Total Risk Factor Score: 12 Thrombosis Risk Factor Assessment Level: High Risk Assessment and Plan Plan: Plan: 1. Left hip pain status post left total arthroplasty: Pain control PT OT supportive care. 2. Hyperlipidemia: Continue statin. DVT prophylaxis: On Eliquis Disposition: Per orthopedics.
[2023-07-20] MEDS: SODIUM CHLORIDE 0.9% 1,000 ML IV SCH (16:28)
[2023-07-20] MEDS: droPERidol 5 MG/2 ML VIAL IVP ONE (16:41)
[2023-07-20] MEDS: SENNOSIDES-DOCUSATE SODIUM 1 EACH TAB PO SCH (20:53)
[2023-07-20] MEDS: HYDROcodone/APAP 7.5-325MG 1 EACH TAB PO PRN (20:54)
[2023-07-20] MEDS: traZODone HCL 100 MG TAB PO SCH (23:27)
[2023-07-21 04:31] LABS: Glucose,Whole Blood 115 mg/dL (70-110)
[2023-07-21] MEDS: SODIUM CHLORIDE 0.9% 500 ML 500 ML IV ONE (04:31)
--- NOTE | 2023-07-21 06:45 | P.PN ---
Subjective Progress Note Date: 07/21/23 This is a 68-year-old fe male who is status post left total hip arthroplasty. This is postoperative day #1 And patient is seen and evaluated at bedside with Dr. Quincy Tracy. Patient states that she had an episode of dizziness last night when she tried to get up and use the bathroom. Patient states that she has been in bed since. Patient states that she is in quite a bit of pain when she tries to stand. Patient denies any fever/chills, chest pain, shortness breath, abdominal pain, numbness, weakness or tingling. Objective - Vital Signs Vital signs: Vital Signs Temp 98.3 F 07/21/23 01:37 Pulse 72 07/21/23 01:37 Resp 16 07/21/23 01:37 BP 115/72 07/21/23 01:37 Pulse Ox 100 07/21/23 01:37 FiO2 Intake & Output 07/20/23 07/20/23 07/21/23 06:59 18:59 06:59 Intake Total 2651 Output Total 350 Balance 2301 Weight 59.2 kg Intake: IV 2651 Output: Estimated Blood Loss 350 Other: Voiding Method Toilet # Voids 1 4 - Exam Vital signs are stable. Patient is in no acute distress and is alert and oriented 3. Calf is soft and nontender to palpation. Dressing is clean, dry, and intact. Patient has full foot and ankle motion without pain or difficulty. Sensation intact. Neurovascular status and circulatory status are intact. - Labs Labs: Abnormal Lab Results - Last 24 Hours (Table) 07/21/23 Range/Units 04:29 POC Glucose (mg/dL) 115 H (70-110) mg/dL Assessment and Plan (1) Osteoarthritis of left hip Current Visit: Yes Status: Acute Code(s): M16.12 - UNILATERAL PRIMARY OSTEOARTHRITIS, LEFT HIP SNOMED Code(s): 684274780813274 (2) S/P total left hip arthroplasty Current Visit: Yes Status: Acute Code(s): Z96.642 - PRESENCE OF LEFT ARTIFICIAL HIP JOINT SNOMED Code(s): 975579709965 Plan: Continue routine postop care and pain control. Continue anticoagulation. Physical therapy today. Weightbearing as tolerated with a walker. Leave dressing in place for 7 days. Appreciate input from internal medicine. Anticipate discharge home later today or tomorrow depending on how the patient does with physical therapy.
[2023-07-21] MEDS: APIXABAN 2.5 MG TABLET PO SCH (07:53)
[2023-07-21] MEDS: ACETAMINOPHEN TAB 325 MG TAB PO PRN (07:54)
[2023-07-21 08:17] VITALS: BP 108/72; PULSE 74; TEMP 98.8
[2023-07-21 08:44] LABS: HCT 29.5 % (37.2-46.3); HGB 9.7 g/dL (12.0-15.0); MCH 29.8 pg (27.0-32.0); MCHC 32.9 g/dL (32.0-37.0); MCV 90.5 FL (80.0-97.0); Mean Platelet Volume 9.1 FL (9.5-12.2); NRBC Per 100 WBC 0 X 10*3/uL (0.00-0.01); Platelet Count 279 X 10*3/uL (140-440); RBC 3.26 X 10*6/uL (4.10-5.20); RDW 12.5 % (11.5-14.5); WBC 12.91 X 10*3/uL (4.50-10.00)
[2023-07-21 09:25] LABS: Basophils # (A) 0.03 X 10*3/uL (0.00-0.10); Basophils % (A) 0.2 %; Eosinophils # (A) 0 X 10*3/uL (0.04-0.35); Eosinophils % (A) 0 %; Lymphocytes # (A) 1.39 X 10*3/uL (0.90-5.00); Lymphocytes % (A) 10.8 %; Monocytes # (A) 1.59 X 10*3/uL (0.20-1.00); Monocytes % (A) 12.3 %; Neutrophils # (A) 9.85 X 10*3/uL (1.80-7.70); Neutrophils % (A) 76.3 %; RBC Morphology Normal (Normal)
--- NOTE | 2023-07-21 10:26 | P.PN ---
Subjective Progress Note Date: 07/21/23 Feels better, no chest pain abdominal pain no nausea no vomiting no dizziness. Ambulating. Objective - Vital Signs Vital signs: Vital Signs Temp 98.8 F 07/21/23 07:05 Pulse 74 07/21/23 07:05 Resp 16 07/21/23 07:05 BP 108/72 07/21/23 07:05 Pulse Ox 97 07/21/23 07:05 FiO2 Intake & Output 07/20/23 07/21/23 07/21/23 18:59 06:59 18:59 Intake Total 2651 100 Output Total 350 500 Balance 2301 -400 Weight 59.2 kg Intake: IV 2651 Oral 100 Output: Urine 500 Estimated Blood Loss 350 Other: Voiding Method Toilet # Voids 1 4 1 - Exam Constitutional: No acute distress, conversant, pleasant Eyes: Anicteric sclerae, moist conjunctiva, no lid-lag, PERRLA ENMT: NC/AT,Oropharynx clear, no erythema, exudates Neck:Supple, FROM, no masses, or JVD, No carotid bruits; No thyromegaly Lungs: Clear to auscultation, Clear to percussion, Normal respiratory effort, no accessory muscle use Cardiovascular: Heart regular in rate and rhythm, No murmurs, gallops, or rubs no peripheral edema Abdominal: Soft Nontender, non distended, no guarding, no rebound or rigidity, Normoactive bowel sounds No hepatomegaly, No splenomegaly, No palpable mass No abdominal wall hernia noted Skin: Normal temperature, tone, texture, turgor, No induration No subcutaneous nodules, No rash, lesions, No ulcers Extremities:No digital cyanosis No clubbing, Pedal pulses intact and symmetrical Radial pulses intact and symmetrical Normal gait and station, No calf tenderness Psychiatric: Alert and oriented to person, place and time, Appropriate affect Intact judgement Neuro: Muscles Strength 5/5 in all 4 extremities, Sensation to light touch grossly present throughout, Cranial nerves II-XII grossly intact. No focal sens ory deficits - Labs CBC & Chem 7: 07/21/23 05:35 Labs: Abnormal Lab Results - Last 24 Hours (Table) 07/21/23 07/21/23 Range/Units 04:29 05:35 WBC 12.91 H (4.50-10.00) X 10*3/uL RBC 3.26 L (4.10-5.20) X 10*6/uL Hgb 9.7 L (12.0-15.0) g/dL Hct 29.5 L (37.2-46.3) % MPV 9.1 L (9.5-12.2) FL Immature Gran # 0.05 H (0.00-0.04) X 10*3/uL Neutrophils # 9.85 H (1.80-7.70) X 10*3/uL Monocytes # 1.59 H (0.20-1.00) X 10*3/uL Eosinophils # 0 L (0.04-0.35) X 10*3/uL POC Glucose (mg/dL) 115 H (70-110) mg/dL Assessment and Plan Plan: Plan: 1. Left hip pain status post left total arthroplasty: Pain control PT OT supportive care. Improving. 2. Hyperlipidemia: Continue statin. DVT prophylaxis: On Eliquis Disposition: Per orthopedics. Hopefully home today or tomorrow
--- NOTE | 2023-07-21 12:48 | P.DS ---
Providers Expected date of discharge: 07/21/23 Attending physician: Quincy Tracy Consults: 07/20/23 08:53 Consult Physician Routine Consulting Provider: Gerardo Kohli Consult Reason/Comments: medical management Do you want consulting provider notified?: Yes Primary care physician: Quincy Hicks - Discharge Diagnosis(es) (1) Osteoarthritis of left hip Current Visit: Yes Status: Acute (2) S/P total left hip arthroplasty Current Visit: Yes Status: Acute Hospital Course: This is a 68-year-old female with known history of degenerative arthritis of the left hip. The patient presented for evaluation as an outpatient. After discussion and consideration patient elects to proceed with total hip arthroplasty. The patient is seen preoperatively by Dr. Tracy and medically cleared for surgery by their primary care physician. Patient is admitted to [facility] on 07/20/2023 for total hip arthroplasty. The procedure is performed without complication or sequelae. The patient is doing well postoperatively. Labs and vital signs are stable on day of discharge. On day of discharge patient's hip incision is healing well. There is minimal erythema. There is no drainage noted at this time. There is minimal soft tissue swelling to the hip and thigh. Patient has full foot and ankle motion without difficulty or pain. Calf is soft and nontender to palpation. Neurovascular status to the left lower extremity is intact. Patient is discharged home in good condition. Please see med rec for accurate list of home medications. Plan - Discharge Summary Discharge Rx Participant: Yes New Discharge Prescriptions: New HYDROcodone/APAP 7.5-325MG [[place] 7.5-325] 1 - 2 tab PO Q6H PRN #32 tab PRN Reason: Pain Apixaban [Eliquis] 2.5 mg PO BID 30 Days #60 tab Sennosides [Senokot] 2 tab PO DAILY PRN #60 tablet PRN Reason: Constipation No Action Loratadine [Claritin] 10 mg PO DAILY traZODone HCL [Desyrel] 100 mg PO HS Relief Factor 1 dose PO TID Acetaminophen-Codeine 300-30mg [Tylenol w/codeine #3] 1 - 2 tab PO Q4-6H PRN PRN Reason: Pain Cbd W/Melatonin 1 tab PO DAILY polyethylene glycoL 3350 [Miralax] 17 gm PO DAILY Pravastatin Sodium [Pravachol] 40 mg PO DAILY Lidocaine HCl/Menthol [Icy Hot Max 4%-1% Liq Roll-On] 1 applic TOPICAL DAILY Acetaminophen [Tylenol Extra Strength] 500 - 1,000 mg PO DAILY PRN PRN Reason: Pain Discharge Medication List Acetaminophen-Codeine 300-30mg [Tylenol w/codeine #3] 1 - 2 tab PO Q4-6H PRN 08/27/20 [History] Cbd W/Melatonin 1 tab PO DAILY 08/27/20 [History] Loratadine [Claritin] 10 mg PO DAILY 08/27/20 [History] Relief Factor 1 dose PO TID 08/27/20 [History] traZODone HCL [Desyrel] 100 mg PO HS 08/27/20 [History] Acetaminophen [Tylenol Extra Strength] 500 - 1,000 mg PO DAILY PRN 07/15/23 [History] Lidocaine HCl/Menthol [Icy Hot Max 4%-1% Liq Roll-On] 1 applic TOPICAL DAILY 07/15/23 [History] Pravastatin Sodium [Pravachol] 40 mg PO DAILY 07/15/23 [History] polyethylene glycoL 3350 [Miralax] 17 gm PO DAILY 07/15/23 [History] Apixaban [Eliquis] 2.5 mg PO BID 30 Days #60 tab 07/20/23 [Rx] HYDROcodone/APAP 7.5-325MG [[place] 7.5-325] 1 - 2 tab PO Q6H PRN #32 tab 07/20/23 [Rx] Sennosides [Senokot] 2 tab PO DAILY PRN #60 tablet 07/20/23 [Rx] Follow up Appointment(s)/Referral(s): [facility] [NON-STAFF] - As Needed (walker) [facility], [NON-STAFF] - 1-2 Days ([facility] will call you to schedule your in home physical therapy visits. ) Quincy Tracy DO [Doctor of Osteopathic Medicine] - 08/02/23 1:30 pm Activity/Diet/Wound Care/Special Instructions: Weightbearing as tolerated with walker. Leave dressing intact. Dressing may be removed by home care nurse or by patient in 7 days. Then change dressing twice daily until follow up. May shower with initial dressing intact and after removal. If dressing become saturated, please remove. Please take Eliquis twice daily for 30 days to prevent blood clots. Recommend use of compression stockings daily until follow up to help prevent swelling and blood clots. May remove at night before sleeping. Please follow-up with [facility] in 2 weeks and call with any questions or concerns, . Discharge Disposition: HOME WITH HOME HEALTH SERVICES
== END 2023-07-21 15:05 | disposition home health service (06) ==
LOC: OR 07:08 → 4SSUR 14:09 → OR 07-21 15:05
PROVIDERS: ATTEND Orthopaedic Surgery
DX: M16.12 Unilateral primary osteoarthritis, left hip (principal); G89.18 Other acute postprocedural pain; M87.052 Idiopathic aseptic necrosis of left femur; E78.5 Hyperlipidemia, unspecified; Z96.641 Presence of right artificial hip joint; Z87.891 Personal history of nicotine dependence; Z86.711 Personal history of pulmonary embolism; Z86.718 Personal history of other venous thrombosis and embolism; Z79.01 Long term (current) use of anticoagulants; Z79.899 Other long term (current) drug therapy
CPT/HCPCS: 97162; 64447; 85025; 73501; 27130; C1776; J2250; J1100; J2175; J0690 ×2; J2405; J2795